=== PATIENT | male | born 1930 | race Caucasian/White ===

== ENCOUNTER 2016-04-23 16:51 | Inpatient (IN) | payer OTHER ==
[~2016-04-23] VITALS: Ht 177.8 cm; Wt 81.2 kg
--- NOTE | ~2016-04-23 | H ---
[facility] [place] [address] HISTORY AND PHYSICAL Name: MARIA ALEJANDRA HARPER Room #: 437-P ADM IN M.R.#: [id number] Admission: 04/23/16 Attend Phys: Ga Corral MD Discharge: Date of : [birth year] Report #: [id number] THIS REPORT FOR: //name// CC: Ga Corral DATE OF SERVICE: 04/23/2016 CHIEF COMPLAINT: Shortness of air. HISTORY OF PRESENT ILLNESS: The patient is an 86-year-old male with underlying dementia, COPD, who presents with increased shortness of air. The family reports he has been getting more short of air over the past several days, has become less active. He uses home oxygen due to COPD at 2 liters, but is up that as much as 6 liters at times recently. PAST MEDICAL HISTORY: Significant for: 1. COPD. 2. Coronary artery disease status post stenting. 3. Atrial fibrillation. 4. Diabetes mellitus. 5. Hyperlipidemia. 6. Hypertension. 7. Degenerative joint disease. 8. Dementia, vascular type. ALLERGIES: SULFA. SOCIAL HISTORY: He is a nonsmoker, nondrinker, lives independently with his . MEDICATIONS: Include spironolactone 25 mg a day, Synthroid 75 mcg a day, Lantus 20 units at bedtime, Coreg 12.5 mg b.i.d., Colace 100 mg b.i.d., Xanax 0.25 mg a day, diltiazem ER 180 mg a day, cream b.i.d., ProAir 2 puffs q. 4h. p.r.n., glipizide 10 mg b.i.d., Pradaxa 75 mg b.i.d. and Onglyza 5 mg a day. REVIEW OF SYSTEMS: CONSTITUTIONAL: No fever or chills. HEENT: He has no headaches or visual changes. CHEST: He does have increasing cough and shortness of air. CARDIOVASCULAR: No chest pains or palpation. GASTROINTESTINAL: No nausea, vomiting, diarrhea or constipation. GENITOURINARY: No burning or frequency. EXTREMITIES: No new joint pains or swelling. SKIN: No new rashes or wounds. NEUROLOGIC: No new numbness or weakness. [address] [address] HISTORY AND PHYSICAL Name: MARIA ALEJANDRA HARPER Room #: 437-P [facility] IN M.R.#: [id number] Admission: 04/23/16 Attend Phys: Ga Corral MD Discharge: Date of : [birth year] Report #: [id number] PHYSICAL EXAMINATION: VITAL SIGNS: Blood pressure 103/63, pulse was 130 in the ER, respiratory rate is 24, O2 sat was 100% on 2 liters. GENERAL: He is awake and alert, in no acute distress this morning. He is very pleasant. HEENT: His mucous membranes are moist. NECK: Supple, without adenopathy, thyromegaly or bruits. CHEST: Shows decreased breath sounds in the bases with crackles. CARDIOVASCULAR: He has an irregular rhythm, but at this time his rate is about 90, but it was up to 140 last night. ABDOMEN: Obese, soft, no masses. Bowel sounds are active. EXTREMITIES: Show 2+ edema bilaterally. Pulses are intact. SKIN: Intact without lesions. There is a rash on his upper back and arms that is scaled over. It appears to be an inflammatory rash. NEUROLOGIC: No new focal numbness or weakness. He is oriented to person and place. DIAGNOSTIC DATA: His EKG showed a-fib with a rate of 113. LABORATORY DATA: Sodium 133, potassium 5.3, chloride 101, bicarb 20, BUN 38, creatinine 1.8, glucose 147, calcium 9.5, magnesium 2.0, AST 47, ALT 51 and alkaline phosphatase 88, troponin less than 0.04. BNP is 13,814. Total protein 7.1, albumin 3.1. WBC is 9.2, hemoglobin 13.7, hematocrit 42.0, platelet count 366, 74 segs, 13 lymphs, 8 monocytes. Chest x-ray shows patchy basilar atelectasis, no infiltrates. ASSESSMENT AND PLAN: 1. Acute congestive heart failure, most likely systolic with a history of underlying atrial fibrillation and coronary artery disease. I have consulted Cardiology. We will give him IV Lasix once a day. We will monitor his renal function. 2. Acute kidney injury with chronic kidney disease. We will monitor that. I think this is just due to poor perfusion. 3. Chronic obstructive pulmonary disease. Continue his home meds and breathing treatments. By: 0830 0934 Ga Corral MD /nt
--- NOTE | ~2016-04-23 | EKG ---
[address] [place] [address] ELECTROCARDIOGRAM REPORT Name: MARIA ALEJANDRA HARPER Room #: 437-P ADM IN M.R.#: [id number] Admission: 04/23/16 Attend Phys: Ga Corral MD Discharge: Date of : [birth year] Report #: [id number] THIS REPORT FOR: //name// [facility] ED Test Date: 2016-04-23 Test Time: 17:06:08 Pat Name: MARIA ALEJANDRA HARPER Department: Room: 437 Gender: M Senior Writer: MZOOK : 1930 Requested By: Gordon Coy Order Number: [id number] MD: Presley Shaver Measurements Intervals [place] Rate: 113 P: [place]: QRS: -38 QRSD: 104 T: 177 QT: 334 QTc: 458 Interpretive Statements Atrial fibrillation Left axis deviation Borderline low voltage, extremity leads nonspecific ST and T wave abnormality No previous ECG available for comparison Electronically Signed On 04-25-2016 15:09:34 CDT by Presley Shaver [email or web address] <ELECTRONICALLY SIGNED> By: Presley Shaver MD, [facility] 04/25/16 1509 05 05 Presley Shaver MD, FACC /EPI
--- NOTE | ~2016-04-23 | HC ---
[facility] [place] [address] CONSULTATION Name: MARIA ALEJANDRA HARPER Room #: 437-P ADM IN M.R.#: [id number] Admission: 04/23/16 Attend Phys: Ga Corral MD Discharge: Date of : [birth year] Report #: [id number] THIS REPORT FOR: //name// CC: Ga Corral HISTORY OF PRESENT ILLNESS: The patient is an 86-year-old male who I had remotely taken care of. Not in the last 3 or 4 years. Subsequently, by Dr. Longo. It looks like Dr. Gu had placed 2 stents to his LAD in February 2013. I believe I last saw the patient in 2014. He does appear slightly more disheveled and apparently he is still living independently with his , but they are not really able to get around. Scheduled to see me in the office this week. Came to the emergency room with progressive dyspnea, shortness of breath, progressive dementia, it also appears COPD. Apparently, this should be going on for the last few days to possibly a week. He is on oxygen at home. He denies chest pain or pressure. EKG is atrial fib with rapid ventricular response, nonspecific ST abnormalities. HOME MEDICATIONS: Have been Aldactone, Synthroid, Lantus, Colace, Xanax, Coreg 12.5 b.i.d., diltiazem 180, ProAir, glipizide, Pradaxa 75 b.i.d. and Onglyza. PAST MEDICAL HISTORY: Positive for coronary artery disease, some progressive dementia, COPD, remote smoking, diabetes, hypertension, hypercholesterolemia, coronary stents to the LAD last in 2013, vascular dementia, DJD. SOCIAL HISTORY: He lives with his , currently a nondrinker, nonsmoker. He does not drive any longer. ALLERGIES: SULFA. REVIEW OF SYSTEMS: Really difficult as he has some memory issues here. CURRENT MEDICATIONS: IV Lasix was added b.i.d., now currently down to once a day. Chest x-ray shows chronic lung changes, bibasilar atelectasis and scarring, no definite failure. LABORATORY DATA: Sodium 133, potassium 5.3, creatinine 1.8, BUN 38. Liver function tests normal. BNP was 13,800. H and H are 13.7 and 42, white count 9.2. PHYSICAL EXAMINATION: GENERAL: He does not appear to be in distress, although somewhat difficult memory issues, not a great for history. VITAL SIGNS: Blood pressure 110/80, pulse 100s and irregularly irregular. HEENT: Eyes reveal arcus senilis. Pharynx is clear. NECK: Shows preserved upstrokes, there is some JVD appreciated. [facility] [address] [place] [address] CONSULTATION Name: MARIA ALEJANDRA HARPER Room #: 437-P ADM IN M.R.#: [id number] Admission: 04/23/16 Attend Phys: Ga Corral MD Discharge: Date of : [birth year] Report #: [id number] LUNGS: Have prolonged expiratory phase, diminished in the left base. CARDIOVASCULAR: Irregularly irregular, S1 and S2 distant. ABDOMEN: Slightly protuberant, nontender. EXTREMITIES: Reveal trace to 1+ edema. Distal pulses diminished. NEUROLOGIC: Nonfocal. SKIN: Warm and dry without xanthoma or ulcer. MUSCULOSKELETAL: Generalized arthritic changes. I did not ambulate him. ASSESSMENT: 1. Acute on chronic systolic heart failure. 2. Atrial fibrillation with rapid ventricular response. 3. Chronic kidney disease. 4. Hyperkalemia. 5. Chronic obstructive pulmonary disease. 6. Vascular dementia. 7. Diabetes. 8. Hypertension. 9. Hypercholesterolemia. RECOMMENDATIONS AND PLAN: I agree with Lasix. The echo preliminarily here looks to have an EF of 25-30% range, globally down, but worse in the inferior wall. The PA pressures are elevated. The patient appears to be certainly have had significant dementia since I have last seen him. Would continue with supportive oral therapy and anticoagulation as there is no bleeding issue, he is not anemic. Would opt for improved rate control here. We will add his diltiazem back. We may need digoxin. Continue with IV Lasix. Thank you for asking us to assist in the care of this patient. <ELECTRONICALLY SIGNED> By: Terry Esparza MD, FACC 04/26/16 0904 1131 1848 Terry Esparza MD, FACC /nt
--- NOTE | ~2016-04-23 | 2DMMODE ---
[facility] [place] [address] 2 D/M-MODE ECHOCARDIOGRAM Name: LEROYMARIA ALEJANDRA Room #: 437-P [facility] IN .R.#: [id number] Admission: 04/23/16 Attend Phys: Ga Corral, Discharge: Date of : [birth year] Date of Service: 04/24/16 1602 Report #: [id number] THIS REPORT FOR: //name// APPROVED REPORT EXAM: Comprehensive 2D, Doppler, and color-flow Echocardiogram Patient Location: Bedside Blood Pressure: 109/81 mmHg HR: 101 bpm Other Information Study Quality: Good Indications Diabetes Dyspnea Atrial Fibrillation CAD Hypertension/HDD 2D Dimensions LVEF(%): 27.47 (>50%) IVSd: 10.86 (7-11mm) LVOT Diam: 20.00 (18-24mm) LVDd: 53.72 mm PWd: 10.70 (7-11mm) Ascending Aorta: 28.02 mm LVDs: 46.79 (25-40mm) Schmidt's LVEF: 27.47 % Volumes Left Atrial Volume (Systole) Single Plane 4CH: 89.02 mL Single Plane 2CH: 71.71 mL LA ESV Index: 43.00 mL/m2 Aortic Valve AoV Peak Avery.: 0.94 m/s AO Peak Gr.: 4.08 mmHg LV Max P.71 mmHg LV Max: 0.42 m/s Mitral Valve ERO: 17.88 mm2 MV Max Avery.: 4.36 m/s [facility] [address] [address] 2 D/M-MODE ECHOCARDIOGRAM Name: MARIA ALEJANDRA HARPER Room #: 437-P ADM IN M.R.#: [id number] Admission: 04/23/16 Attend Phys: Ga Corral, Discharge: Date of : [birth year] Date of Service: 04/24/16 1602 Report #: [id number] Pulmonary Valve PV Peak Avery.: 0.55 m/s PV Peak Gr.: 1.21 mmHg Tricuspid Valve TR Peak Avery.: 2.59 m/s RAP Estimate: 10.00 mmHg TR Peak Gr.: 26.79 mmHg Left Ventricle The left ventricle is normal size. There is global hypokinesis of the left ventricle. Mid-distal Inferior akinesis. There is normal left ventricular wall thickness. Left ventricular systolic function is moderate to severely decreased. LVEF is 25-30%. Unable to assess Left Ventricular Diastolic Function due to A-fib. Right Ventricle Right ventricle is mildly dilated. The right ventricular systolic function is normal. Atria Left atrium is moderately dilated. Right atrium is mildly dilated. Aortic Valve The aortic valve is normal in structure. No aortic regurgitation is present. There is no aortic valvular stenosis. Mitral Valve The mitral valve is normal in structure. Moderate to severe mitral regurgitation. Tricuspid Valve The tricuspid valve is normal in structure. Moderate tricuspid regurgitation. Pulmonic Valve The pulmonary valve is normal in structure. There is no pulmonic valvular regurgitation. Great Vessels The aortic root is normal in size. IVC is dilated and collapses <50% with inspiration. Pericardium There is no pericardial effusion. [facility] [address] [place] [address] 2 D/M-MODE ECHOCARDIOGRAM Name: MARIA ALEJANDRA HARPER Room #: 437-P ADM IN M.R.#: [id number] Admission: 04/23/16 Attend Phys: Ga Corral, Discharge: Date of : [birth year] Date of Service: 04/24/16 1602 Report #: [id number] <Conclusion> The left ventricle is normal size. There is normal left ventricular wall thickness. Left ventricular systolic function is moderate to severely decreased. LVEF is 25-30%. Right ventricle is mildly dilated. Left atrium is moderately dilated. There is global hypokinesis of the left ventricle. Mid-distal Inferior akinesis. There is no aortic valvular stenosis. No aortic regurgitation is present. The mitral valve is normal in structure. Moderate to severe mitral regurgitation. The tricuspid valve is normal in structure. Moderate tricuspid regurgitation. Moderate to severe mitral regurgitation. There is no pulmonic valvular regurgitation. IVC is dilated and collapses <50% with inspiration. There is no pericardial effusion. There is no pericardial effusion. <ELECTRONICALLY SIGNED> By: Terry Esparza MD, [facility] 04/24/16 1602 01 01 Terry Esparza MD, [facility] /INF
[~2016-04-23 16:51] MED LIST: ACETAMINOPHEN325 M1 PO; ALDACTONE25 MG PO; ASPIRIN325 PO; ASPIRIN81 M2 PO; CARDIZEM CD 18180 M3 PO; CARDIZEM CD180 MG PO; CARVEDILOL12.5 MG PO; COREG PO; DIOVAN 80 MG TA80 M1 PO; DIOVAN160 MG PO; DOCUSATE SODIU100 MG; FISH OIL 1,0001 EAC7; GLIPIZIDE ER10 MG PO; GLUMETZA1000 PO; LANTUS SUBQ; LASIX 40 MG TAB40 M1 PO; LEVOTHYROXINE0.05 MG PO; LIPITOR40 MG PO; MULTAQ 400 MG400 MG PO; ONGLYZA5 MG PO; PACERONE 200 M200 M1 PO; PRADAXA150 MG PO; PRADAXA75 MG PO; VYTORIN 10-201 EACH; [UNRECOGNIZED DRUG - SUPPLY] PO
[2016-04-23 18:15] LABS: ABSOLUTE NEUTROPHILS 6.9 thou/uL (1.4-8.2); BASOPHILS 0.3 % (0.0-2.0); EOSINOPHILS 2.6 % (0.0-3.0); HEMOGLOBIN 13.7 gm/dL (14.0-18.0); LYMPHOCYTES 13.8 % (24.0-44.0); MCHC 32.6 g/dL (28.0-37.0); MCV 95.1 fL (80.0-100.0); MONOCYTES 8.6 % (1.0-8.0); PLATELET COUNT 366 thou/uL (150-400); POLYS 74.7 % (36.0-66.0); RBC 4.42 mil/uL (4.50-6.00); RDW 16.2 % (10.5-14.5); WBC 9.2 thou/uL (4.0-11.0)
[2016-04-23 18:16] LABS: MANUAL DIFF NO
[2016-04-23 18:35] LABS: ANION GAP 12 mmol/L (7-16); BUN 38 mg/dL (7-18); CALCIUM 9.5 mg/dL (8.5-10.1); CHLORIDE 101 mmol/L (98-107); CO2 20 mmol/L (21-32); CREATININE 1.8 mg/dL (0.6-1.3); GLUCOSE 147 mg/dL (70-99); POTASSIUM 5.3 mmol/L (3.5-5.1); SODIUM 133 mmol/L (136-145)
[2016-04-23 18:40] LABS: ALBUMIN 3.1 g/dL (3.4-5.0); ALKALINE PHOSPHATASE 88 U/L (46-116); NT-PRO BRAIN NAT PEPTIDE 13814 pg/mL (<300); SGOT 47 U/L (15-37); SGPT 51 U/L (30-65); TOTAL PROTEIN 7.1 g/dL (6.4-8.2); TROPONIN-I < 0.04 ng/mL (<0.04-0.07)
[2016-04-23 20:35] VITALS: BP 108/93
[2016-04-23] MEDS ORDERED: CARVEDILOL12.5 MG PO (23:53)
[2016-04-23] MEDS ORDERED: COLACE100 MG PO (23:53)
[2016-04-23] MEDS ORDERED: XANAX 0.25 MG0.25 MG PO (23:54)
[2016-04-23] MEDS ORDERED: DILTIAZEM ER180 MG PO (23:55)
[2016-04-23] MEDS ORDERED: TRIAMCINOLONE A80 G2 TOP (23:56)
[2016-04-23] MEDS ORDERED: PROAIR HFA8.5 GM INH (23:57)
[2016-04-24 00:48] VITALS: BP 111/73
[2016-04-24 05:30] VITALS: BP 99/68
[2016-04-24 08:00] VITALS: BP 109/81
[2016-04-24 12:25] VITALS: BP 110/83
[2016-04-24 18:00] VITALS: BP 104/67
[2016-04-24 19:51] VITALS: BP 95/59
[2016-04-25 04:09] LABS: CALCIUM 8.7 mg/dL (8.5-10.1); CREATININE 1.9 mg/dL (0.6-1.3); POTASSIUM 4.2 mmol/L (3.5-5.1)
[2016-04-25 05:40] VITALS: BP 87/65
[2016-04-25 08:00] VITALS: BP 84/56
[2016-04-25 12:00] VITALS: BP 93/71
[2016-04-25 16:00] VITALS: BP 103/70
[2016-04-25 19:53] VITALS: BP 107/68
[2016-04-26 03:32] VITALS: BP 105/70
[2016-04-26 06:26] LABS: CALCIUM 8.8 mg/dL (8.5-10.1); CREATININE 1.8 mg/dL (0.6-1.3); POTASSIUM 4.1 mmol/L (3.5-5.1)
[2016-04-26 08:00] VITALS: BP 112/75
[2016-04-26 12:00] VITALS: BP 109/57
[2016-04-26 16:00] VITALS: BP 101/67
[2016-04-26 19:41] VITALS: BP 104/82
[2016-04-27 04:42] VITALS: BP 107/76
[2016-04-27 08:00] VITALS: BP 107/77
[2016-04-27 13:56] VITALS: BP 117/87
[2016-04-27 15:31] VITALS: BP 107/76
== END 2016-04-27 16:25 | DRG 291 ==
LOC: ER 16:51 → 4S 19:43 → EROBS 19:43 → 4S 21:12
PROVIDERS: Emergency Medicine; Family Medicine
DX: I13.0 Hypertensive heart and chronic kidney disease with heart failure and stage 1 through stage 4 chronic kidney disease, or unspecified chronic kidney disease (principal); I50.23 Acute on chronic systolic (congestive) heart failure; N17.9 Acute kidney failure, unspecified; I48.91 Unspecified atrial fibrillation; N18.9 Chronic kidney disease, unspecified; I25.5 Ischemic cardiomyopathy; I95.9 Hypotension, unspecified; E11.22 Type 2 diabetes mellitus with diabetic chronic kidney disease; E78.5 Hyperlipidemia, unspecified; M19.90 Unspecified osteoarthritis, unspecified site; I25.10 Atherosclerotic heart disease of native coronary artery without angina pectoris; J44.9 Chronic obstructive pulmonary disease, unspecified; E78.00 Pure hypercholesterolemia, unspecified; F01.50 Vascular dementia, unspecified severity, without behavioral disturbance, psychotic disturbance, mood disturbance, and anxiety; E87.5 Hyperkalemia; Z96.653 Presence of artificial knee joint, bilateral; E66.9 Obesity, unspecified; Z68.25 Body mass index [BMI] 25.0-25.9, adult; Z95.5 Presence of coronary angioplasty implant and graft; Z79.4 Long term (current) use of insulin; Z79.899 Other long term (current) drug therapy; Z88.2 Allergy status to sulfonamides; Z88.8 Allergy status to other drugs, medicaments and biological substances
CPT/HCPCS: 10100

== ENCOUNTER 2016-05-08 11:50 | Inpatient (IN) | payer OTHER ==
[~2016-05-08] VITALS: Ht 172.7 cm; Wt 80.0 kg
--- NOTE | ~2016-05-08 | EEG ---
[facility] [address] [place] [employer] [place] [address] ELECTROENCEPHALOGRAM Name: MARIA ALEJANDRA HARPER Room #: 315-P [facility] IN M.R.#: [id number] Admission: 05/08/16 Attend Phys: Ga Corral MD Discharge: 05/13/16 Date of : [birth year] Report #: [id number] THIS REPORT FOR: //name// CC: Ga Corral DATE OF SERVICE: 05/11/2016 This patient is being evaluated for altered mental status. EEG is being done by placing the electrodes by standard 10-20 system of electrode placement. Both referential and sequential montages were used for recording. Background activity in this patient's EEG does go up to about 8-9 Hz. Most of the time this EEG is intermixed with theta range slowing on both sides. The patient goes to sleep that is associated with more slowing and vertex sharp waves and sleep spindles on both sides. Photic stimulation is unremarkable. Throughout the record, no active epileptiform activity was noticed. IMPRESSION: This is a moderately abnormal EEG because it is intermixed with theta range slowing on both sides. That is a nonspecific abnormality, which can occur with dementia, encephalopathy, effect of psychotropic medication, etc. Clinical correlation is recommended. No active epileptiform activity was noticed during this record. Thank you very much for this referral. <ELECTRONICALLY SIGNED> By: Ignacio Hager MD 05/14/16 1020 1748 1833 MD adriana Valadez
--- NOTE | ~2016-05-08 | HC ---
[facility] [place] [address] CONSULTATION Name: MARIA ALEJANDRA HARPER Room #: 315-P [facility] IN M.R.#: [id number] Admission: 05/08/16 Attend Phys: Ga Corral MD Discharge: 05/13/16 Date of : [birth year] Report #: [id number] THIS REPORT FOR: //name// CC: Ga Corral DATE OF SERVICE: 05/08/2016 REASON FOR CONSULTATION: AFib with RVR and congestive heart failure. HISTORY OF PRESENT ILLNESS: The patient is an 86-year-old who was recently discharged early in April after being admitted with congestive heart failure and AFib with RVR. An echocardiogram at that time was 25%-30%. He follows with Dr. Esparza. Apparently, he was sent to rehab, but today was noted to have increased shortness of breath and EKG was obtained and showed that his AFib was uncontrolled with rates in the 140s-150s. He denies any chest pain. He has shortness of breath and some mild PND and orthopnea. He reports increased fatigue. REVIEW OF SYSTEMS: A 12-point review of systems was performed, was otherwise negative. PAST MEDICAL HISTORY: 1. Ischemic cardiomyopathy, EF 25%-30%. 2. Systolic heart failure. 3. Coronary artery disease. 4. COPD. 5. Diabetes. 6. Hypertension. 7. Hyperlipidemia. 8. Degenerative joint disease. SOCIAL HISTORY: Does not smoke. FAMILY HISTORY: Noncontributory. ALLERGIES: SULFA AND HYDROCHLOROTHIAZIDE. PHYSICAL EXAMINATION: VITAL SIGNS: Temperature is 36.5, pulse 84; currently, on diltiazem drip at 5; his pulse was 145 prior, his respiration is 20, blood pressure 114/81, sats are 93%. GENERAL: He is in no acute distress. HEENT: Oropharynx clear. Mucous membranes are moist. NECK: Supple with no thyromegaly. CARDIOVASCULAR: Heart is irregularly irregular, but not tachycardic. There are no murmurs. He does have some elevated jugular venous pressure and a positive [facility] [address] [address] CONSULTATION Name: MARIA ALEJANDRA HARPER Room #: 315-P [facility] IN M.R.#: [id number] Admission: 05/08/16 Attend Phys: Ga Corral MD Discharge: 05/13/16 Date of : [birth year] Report #: [id number] hepatojugular reflux. LUNGS: Some mild crackles at the bases. ABDOMEN: Soft, nontender, nondistended, no hepatosplenomegaly. EXTREMITIES: There is some trace edema. His pulses are 1+ throughout. IMAGING STUDIES: His EKG here showed atrial fibrillation with rapid ventricular response and no ischemic changes. His chest x-ray shows some mild pulmonary edema. LABORATORY DATA: His white count is 10.4, hemoglobin is 12.2, platelets are 238. His sodium is 130, potassium 5.8, BUN is 54, creatinine is 1.8. His proBNP is 9423. ASSESSMENT AND PLAN: In summary, the patient is an 86-year-old who presents with worsening congestive heart failure as well as atrial fibrillation/atrial flutter with rapid ventricular response. In order to optimize this, we will continue with the diltiazem drip and start him on digoxin for improved rate control. We will continue his other rate-controlled medications that he was on as an outpatient. In terms of his congestive heart failure, I have recommended that we initiate IV diuretics to help his volume status. I discussed with the family that he has a decreased ejection fraction and poor heart function. I discussed we will try to optimize things medically as best as we can. <ELECTRONICALLY SIGNED> By: Abdiel Marroquin MD 05/17/16 0855 1842 0229 Abdiel Marroquin MD /nt
--- NOTE | ~2016-05-08 | EKG ---
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
--- NOTE | ~2016-05-08 | EKG ---
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
--- NOTE | ~2016-05-08 | H ---
[facility] [place] [address] HISTORY AND PHYSICAL Name: MARIA ALEJANDRA HARPER Room #: 315-P [facility] IN M.R.#: [id number] Admission: 05/08/16 Attend Phys: Ga Corral MD Discharge: 05/13/16 Date of : [birth year] Report #: [id number] THIS REPORT FOR: //name// CC: Ga Corral DATE OF SERVICE: 05/09/2016 CHIEF COMPLAINT: Shortness of air and palpitations. HISTORY OF PRESENT ILLNESS: The patient was brought in via ambulance with AFib with RVR with a rate of 135-150. He has been over at [facility]. The family states he was talking normally yesterday, became tachycardic and more short of breath. He had been over there for COPD recently. He always uses oxygen at home. PAST MEDICAL HISTORY: Significant for: 1. Recent COPD exacerbation. 2. History of AFib. 3. Hypothyroidism. 4. Diabetes mellitus, insulin requiring. 5. Dementia. 6. Degenerative joint disease. 7. Coronary artery disease with status post stents. 8. Hypertension. MEDICATIONS: Aldactone 25 mg daily, Synthroid 75 mcg a day, Lantus 20 units at bedtime, Coreg 12.5 mg b.i.d., Colace 100 mg b.i.d., Xanax 0.25 mg p.r.n., Aristrocort cream daily, ProAir 2 puffs q. 4 hours p.r.n., Pradaxa 75 mg b.i.d. and Colace p.r.n. ALLERGIES: HYDROCHLOROTHIAZIDE and SULFA. SOCIAL HISTORY: He is a prior drinker, but not regularly. No recreational drugs. Prior smoker, not current. REVIEW OF SYSTEMS: Unable to obtain due to his encephalopathic state. Per the ER and the family, he did not have any fevers or chills. He denied any headaches or visual changes. He denied any chest pain, but he did have the shortness of breath. Denied any nausea, vomiting or diarrhea. No urinary burning, no frequency. No joint pains. No new rashes or wounds. Overnight, he developed hypoglycemia and was transferred down to the ICU. PHYSICAL EXAMINATION: GENERAL: At the time of my evaluation, the patient is agitated and opens his eyes, but does not really follow commands. HEENT: His mucous membranes are moist. [address] [address] HISTORY AND PHYSICAL Name: MARIA ALEJANDRA HARPER Room #: 315-P [facility] IN M.R.#: [id number] Admission: 05/08/16 Attend Phys: Ga Corral MD Discharge: 05/13/16 Date of : [birth year] Report #: [id number] NECK: Supple without adenopathy, thyromegaly or bruits. CHEST: Clear to auscultation bilaterally. CARDIOVASCULAR: He has an irregular rhythm with a rate in the 90s. ABDOMEN: Soft, not distended; it seems mildly tender, but not tympanitic. His bowel sounds are active. EXTREMITIES: Show no edema. Pulses are intact. IMAGING STUDIES: Admit EKG showed AFib with an RVR of [address] segment changes. Chest x-ray shows what looked like pulmonary edema initially. A repeat x-ray this morning shows increasing infiltrates in the right side, upper and lower infiltrates and cardiomegaly. LABORATORY DATA: Sodium was 138, potassium was 5.8, chloride was 99, bicarbonate was 24, BUN was 54, creatinine was 1.8, glucose was 197, calcium was 9.3. BNP is 9423. WBCs are 10.4, hemoglobin 12.2, hematocrit 36.5, platelet count 238 with 77 segs and 13 lymphs. Again, his blood sugar got down to the 28 range; he was confused and has not really recovered since then; his blood sugars have come up, but keep dropping. His sugar currently was in the 60 range after an amp of D50. ASSESSMENT AND PLAN: 1. Atrial fibrillation with rapid ventricular rate. He was seen by cardiology. They placed him on Cardizem drip and digoxin. They held his Pradaxa in light of the possibility of doing a pacemaker depending on how he responds to the medications. 2. Acute encephalopathy, possibly the hypoglycemia. He did have a CT of head which showed severe atrophy, but no acute hemorrhage. I have discussed with the family we will watch closely clinically and may get an MRI today to look for stroke, although this seems more related to metabolic state. He does have underlying dementia and this may be exacerbating that. We will monitor glucose closely. 3. Diabetes mellitus with severe hypoglycemia. Stop the Lantus. Keep the sliding scale only if he becomes elevated again. At this time, I do not want to do saline with glucose just in light of his heart failure, but will monitor that closely. 4. Chronic kidney disease with diabetes mellitus. Creatinine is elevated, but near his baseline. 5. Mild anemia secondary to chronic kidney disease. 6. Hyperkalemia. We will monitor as we diurese. We will check again; I think that we may end up having to do just a slight amount of fluids if he can [facility] [address] [place] [address] HISTORY AND PHYSICAL Name: MARIA ALEJANDRA HARPER Room #: 315-P [facility] IN M.R.#: [id number] Admission: 05/08/16 Attend Phys: Ga Corral MD Discharge: 05/13/16 Date of : [birth year] Report #: [id number] tolerate that today. We are going to go ahead and give him IV fluids. We will follow mental status closely with cardiology and the family. <ELECTRONICALLY SIGNED> By: Ga Corral MD 05/16/16 [id number] Ga Corral MD /nt
[~2016-05-08 11:50] MED LIST changes: +COLACE100 MG PO; +DILTIAZEM ER180 MG PO; +PROAIR HFA8.5 GM INH; +TRIAMCINOLONE A80 G2 TOP; +XANAX 0.25 MG0.25 MG PO
[2016-05-08 11:51] VITALS: BP 105/73
[2016-05-08] MEDS ORDERED: BISACODYL SUPP10 MG RECTAL (12:13)
[2016-05-08 12:19] LABS: ABSOLUTE NEUTROPHILS 8.1 thou/uL (1.4-8.2); BASOPHILS 0.7 % (0.0-2.0); EOSINOPHILS 1.1 % (0.0-3.0); HEMATOCRIT 36.5 % (42.0-52.0); HEMOGLOBIN 12.2 gm/dL (14.0-18.0); LYMPHOCYTES 13.8 % (24.0-44.0); MCH 31.3 pg (26.0-34.0); MCHC 33.5 g/dL (28.0-37.0); MCV 93.4 fL (80.0-100.0); MONOCYTES 7.1 % (1.0-8.0); PLATELET COUNT 238 thou/uL (150-400); POLYS 77.3 % (36.0-66.0); RDW 15.4 % (10.5-14.5); WBC 10.4 thou/uL (4.0-11.0)
[2016-05-08 12:20] LABS: MANUAL DIFF NO
[2016-05-08 12:22] LABS: CALCIUM 9.3 mg/dL (8.5-10.1); CREATININE 1.8 mg/dL (0.6-1.3); POTASSIUM 5.8 mmol/L (3.5-5.1)
[2016-05-08 16:59] VITALS: BP 102/59
[2016-05-08 17:25] VITALS: BP 103/74
[2016-05-08 17:55] VITALS: BP 114/81; BP 1174/81
[2016-05-08 19:40] VITALS: BP 128/63
[2016-05-09] VITALS (27 sets, daily range): BP systolic 32–167; BP diastolic 11–131
[2016-05-09 03:54] LABS: HEMATOCRIT 39.6 % (42.0-52.0); HEMOGLOBIN 13.4 gm/dL (14.0-18.0); MCH 31.4 pg (26.0-34.0); MCHC 33.7 g/dL (28.0-37.0); RBC 4.26 mil/uL (4.50-6.00); RDW 15.6 % (10.5-14.5); WBC 10.2 thou/uL (4.0-11.0)
[2016-05-09 04:32] LABS: CALCIUM 9.4 mg/dL (8.5-10.1); CREATININE 1.6 mg/dL (0.6-1.3)
[2016-05-09 04:52] LABS: POTASSIUM 4.6 mmol/L (3.5-5.1)
[2016-05-09 05:18] LABS: ABG SAMPLE TYPE ARTERIAL; BE(vivo) -2.5 mmol/L (-2 to +3); HCO3 23.3 mmol/L (22.0-26.0); LACTATE 1.28 mmol/L (0.5-2.0); PCO2 43.7 mmHg (35.0-45.0); PO2 81.5 mmHg (80.0-100.0); pH 7.344 (7.360-7.450); sO2 95.4 % (92.0-98.0); tCO2 24.6 mmol/L (24.0-30.0)
[2016-05-09 05:19] LABS: STICK SITE R.RADIAL
[2016-05-09 06:12] LABS: ALBUMIN 3.1 g/dL (3.4-5.0); DIRECT BILIRUBIN 0.3 mg/dL (<0.1-0.3); MAGNESIUM 2.1 mg/dL (1.8-2.4); TOTAL BILIRUBIN 0.8 mg/dL (<0.1-1.0); TOTAL PROTEIN 7.1 g/dL (6.4-8.2)
[2016-05-09 06:54] LABS: HEMOGLOBIN 14.2 gm/dL (14.0-18.0); MCH 31.3 pg (26.0-34.0); MCHC 32.9 g/dL (28.0-37.0); PLATELET COUNT 280 thou/uL (150-400); RBC 4.53 mil/uL (4.50-6.00); RDW 15.9 % (10.5-14.5); WBC 12.5 thou/uL (4.0-11.0)
[2016-05-09 06:59] LABS: CALCIUM 9.6 mg/dL (8.5-10.1); CREATININE 1.6 mg/dL (0.6-1.3); MANUAL DIFF YES
[2016-05-09 07:05] LABS: APTT 39.6 Seconds (24.5-32.8); INR 1.4; PROTIME 14.8 Seconds (9.3-11.4)
[2016-05-09 07:07] LABS: TROPONIN-I 0.4 ng/mL (<0.04-0.07)
[2016-05-09 07:34] LABS: URINE BILIRUBIN NEGATIVE (Negative); URINE BLOOD 1+ (Negative); URINE GLUCOSE-RANDOM* NEGATIVE (Negative); URINE KETONES NEGATIVE (Negative); URINE NITRITE NEGATIVE (Negative); URINE PROTEIN (DIPSTICK) NEGATIVE (Negative); URINE SPECIFIC GRAVITY <= 1.005 (1.003-1.035); URINE UROBILINOGEN 0.2 E.U./dl (0.2-1.0)
[2016-05-09 07:41] LABS: URINE COLOR PALE YELLOW
[2016-05-09 08:12] LABS: CASTS None Seen /LPF (None Seen); CRYSTALS None Seen /LPF (None Seen); SQUAMOUS None Seen /LPF (0-3); URINE RBC 3-10 Few /HPF (0-2); URINE WBC 0-5 Rare /HPF (0-5)
[2016-05-09 08:13] LABS: BACTERIA 1-9 Few /HPF (None Seen)
[2016-05-09 08:27] LABS: ABSOLUTE NEUTROPHILS 10.6 thou/uL (1.4-8.2); OVALOCYTES 1+; TOTAL CELL COUNT 100
[2016-05-09 08:28] LABS: ANISOCYTOSIS 1+; BURR CELLS 1+; POLYCHROMASIA OCCASIONAL
[2016-05-10] VITALS (19 sets, daily range): BP systolic 91–129; BP diastolic 56–93
[2016-05-10 04:21] LABS: HEMATOCRIT 35.1 % (42.0-52.0); MCH 31.3 pg (26.0-34.0); MCHC 33.5 g/dL (28.0-37.0); MCV 93.5 fL (80.0-100.0); RBC 3.75 mil/uL (4.50-6.00); RDW 15.1 % (10.5-14.5); WBC 12.3 thou/uL (4.0-11.0)
[2016-05-10 04:23] LABS: HEMOGLOBIN 11.7 gm/dL (14.0-18.0)
[2016-05-10 04:36] LABS: CREATININE 1.8 mg/dL (0.6-1.3)
[2016-05-10 04:40] LABS: POTASSIUM 3.9 mmol/L (3.5-5.1)
[2016-05-11 04:00] VITALS: BP 127/75
[2016-05-11 08:30] VITALS: BP 119/75
[2016-05-11 09:30] LABS: CALCIUM 8.9 mg/dL (8.5-10.1); CREATININE 1.5 mg/dL (0.7-1.3); POTASSIUM 3.4 mmol/L (3.5-5.1)
[2016-05-11 14:25] VITALS: BP 115/74
[2016-05-11 18:15] VITALS: BP 113/76
[2016-05-11 20:45] VITALS: BP 139/87
[2016-05-12 03:32] VITALS: BP 125/68
[2016-05-12 07:35] VITALS: BP 118/73
[2016-05-12 09:45] LABS: HEMATOCRIT 37.4 % (42.0-52.0); HEMOGLOBIN 12.4 gm/dL (14.0-18.0); MCHC 33.2 g/dL (28.0-37.0); MCV 93.5 fL (80.0-100.0); RDW 15.3 % (10.5-14.5); WBC 9.4 thou/uL (4.0-11.0)
[2016-05-12 09:57] LABS: CALCIUM 8.6 mg/dL (8.5-10.1); CREATININE 1.3 mg/dL (0.7-1.3); POTASSIUM 3.1 mmol/L (3.5-5.1)
[2016-05-12 11:45] VITALS: BP 110/63
[2016-05-12 15:19] VITALS: BP 115/68
[2016-05-12 20:54] VITALS: BP 109/58
[2016-05-13 04:00] VITALS: BP 111/70
[2016-05-13 07:44] LABS: CALCIUM 8.3 mg/dL (8.5-10.1); CREATININE 1.4 mg/dL (0.7-1.3); POTASSIUM 3.6 mmol/L (3.5-5.1)
[2016-05-13 07:50] VITALS: BP 117/74
[2016-05-13] MEDS ORDERED: AUGMENTIN 875875 MG PO (12:25)
[2016-05-13] MEDS ORDERED: DIGOXIN125 MCG PO (12:25)
[2016-05-13] MEDS ORDERED: DEMADEX 2020 MG/1 TA PO (12:25)
== END 2016-05-13 15:27 | DRG 177 ==
LOC: ER 11:50 → ICU 14:16 → EROBS 14:16 → 2N 17:02 → ICU 05-09 05:57 → 3N 05-10 17:54
PROVIDERS: Emergency Medicine; Family Medicine; Nurse Practitioner Adult Health
PROC: B548ZZA Ultrasonography of Superior Vena Cava, Guidance (ICD-10-PCS; principal; 2016-05-09)
PROC: 02HV33Z Insertion of Infusion Device into Superior Vena Cava, Percutaneous Approach (ICD-10-PCS; principal; 2016-05-09)
DX: J69.0 Pneumonitis due to inhalation of food and vomit (principal); G93.40 Encephalopathy, unspecified; I50.23 Acute on chronic systolic (congestive) heart failure; I13.0 Hypertensive heart and chronic kidney disease with heart failure and stage 1 through stage 4 chronic kidney disease, or unspecified chronic kidney disease; N17.9 Acute kidney failure, unspecified; I48.92 Unspecified atrial flutter; I48.91 Unspecified atrial fibrillation; F03.90 Unspecified dementia, unspecified severity, without behavioral disturbance, psychotic disturbance, mood disturbance, and anxiety; Z96.653 Presence of artificial knee joint, bilateral; E03.9 Hypothyroidism, unspecified; I25.10 Atherosclerotic heart disease of native coronary artery without angina pectoris; E87.5 Hyperkalemia; I25.5 Ischemic cardiomyopathy; E78.5 Hyperlipidemia, unspecified; M19.90 Unspecified osteoarthritis, unspecified site; E11.649 Type 2 diabetes mellitus with hypoglycemia without coma; E11.22 Type 2 diabetes mellitus with diabetic chronic kidney disease; N18.9 Chronic kidney disease, unspecified; D63.1 Anemia in chronic kidney disease; E87.6 Hypokalemia; Z95.5 Presence of coronary angioplasty implant and graft; Z88.2 Allergy status to sulfonamides; Z88.8 Allergy status to other drugs, medicaments and biological substances
CPT/HCPCS: 10078; 10096; 10194; 27000